=== PATIENT | male | born 2000 | race Caucasian/White ===

== ENCOUNTER → 2022-06-24 14:29 | Outpatient (CLI) | payer OTHER, SELFPAY ==
--- NOTE | ~2022-06-24 | XR_ITS ---
XR wrist RT 2V DATE: 06/24/2022 14:46 INDICATION: Localized swelling, mass, lot TECHNIQUE: AP and lateral views COMPARISON: None FINDINGS: There is prominent soft tissue swelling at the dorsum of the wrist. No underlying abnormal calcification or subcutaneous emphysema bony abnormality. No fracture or dislocation, periosteal reaction or bone destruction, erosive change or chondrocalcino sis. IMPRESSION: Prominent dorsal soft tissue swelling of the wrist Reviewed, dictated and finalized at location L. [employer]
== END ==
PROVIDERS: PCP Nurse Practitioner Family; Visit Provider Nurse Practitioner Family
DX: R22.31 Localized swelling, mass and lump, right upper limb (principal)
CPT/HCPCS: 73100

== ENCOUNTER 2023-06-02 11:58 | Emergency (ER) | payer OTHER, SELFPAY ==
[2023-06-02 12:22] VITALS: BP 112/69; PULSE 72; RESP 18; TEMP 36.9; O2SAT 100
--- NOTE | 2023-06-02 12:38 | ED.URI ---
HPI - URI/Sore Throat General Chief Complaint: Upper Respiratory Infection Stated Complaint: throat sore Time Seen by Provider: 06/02/23 12:32 Source: patient and RN notes reviewed Mode of arrival: ambulatory Limitations: no limitations History of Present Illness HPI Narrative: patient presents today complaining of a left-sided sore throat x2 days. Denies any additional symptoms to include fever, cough, congestion, rhinorrhea, ear pain. Currently rates his pain 3/10, which increases with swallowing. He has tried no [id number] treatment prior to arrival. Related Data Home Medications Medication Instructions Recorded Confirmed No Home Medications 06/24/22 06/02/23 Allergies Allergy/AdvReac Type Severity Reaction Status Date / Time No Known Allergies Allergy Unverified 06/24/22 14:08 Review of Systems Review of Systems: CONSTITUTIONAL: Denies body aches, fever, chills, or sweats. EYES: Denies visual changes, redness, or discharge. ENT: Denies rhinorrhea, congestion, or otalgia.+ Sore throat CARDIOVASCULAR: Denies chest pain, palpitations, or edema. RESPIRATORY: Denies cough or dyspnea. GASTROINTESTINAL: Denies abdominal pain, nausea, vomiting, or diarrhea. GENITOURINARY: Denies dysuria or hematuria. SKIN: Denies rash, itching, or wounds. MUSCULOSKELETAL: Denies back pain, joint pain, or myalgia. NEUROLOGIC: Denies headache, numbness, tingling, or weakness. PSYCH: Denies depression or anxiety. [facility] Past Medical History Medical History Encounter to establish care Lump of right wrist Tobacco abuse Social History Social History Smoking packs per day: 0.5 Smoking cigarettes per day: 10.0 Smoking status: Current every day smoker Alcohol intake: current Alcohol use details: Rarely Substance use: never Substance use type: does not use Lack of Transportation: No Lack of Food: Never True Current Housing: I Have Housing Concerned About Future Housing: No Difficulty Paying Gas/Electric Bills: No Difficulty Paying for Meds: No Currently Unemployed: No Education: Trade/Vocational Certificate Difficulty w/ Childcare or Family Care: No Comments At time of signature, I have reviewed and agree with nursing past medical, surgical, social and family history unless otherwise noted. Please see nursing chart for further information. There is no relevant family history pertinent to the presenting complaint Exam Narrative: GENERAL: Well-appearing, well-nourished, and in no acute distress. HEAD: Normocephalic, atraumatic. EYES: EOMI. No redness or drainage. Conjunctivae normal. ENT: Mucous membranes pink and moist. Nares clear. No rhinorrhea. TMs normal bilaterally. left tonsil 3+, erythematous, with white exudate. Right tonsil 2+ with white exudate. Uvula midline. NECK: Normal AROM. Supple. Bilateral anterior cervical chain lymphadenopathy. CHEST: No respiratory distress. Clear to auscultation. HEART: Regular rate and rhythm. No murmur appreciated. EXTREMITIES: Normal range of motion. No edema. SKIN: Warm, dry, no rash. Capillary refill normal. Normal skin turgor. NEURO: No focal deficits. Alert and oriented x3. Gait steady. PSYCH: Normal affect. No signs of depression or anxiety. Course Course Level of Care: Express Care Visit Vital Signs Vital signs: Vital Signs Temperature 98.5 F 06/02/23 12:22 Pulse Rate 72 06/02/23 12:22 Respiratory Rate 18 06/02/23 12:22 Blood Pressure 112/69 06/02/23 12:22 Pulse Oximetry 100 06/02/23 12:22 Oxygen Delivery Room Air 06/02/23 12:22 Temperature 98.5 F 06/02/23 12:22 Pulse Rate 72 06/02/23 12:22 Respiratory Rate 18 06/02/23 12:22 Blood Pressure 112/69 06/02/23 12:22 Pulse Oximetry 100 06/02/23 12:22 Oxygen Delivery Room Air 06/02/23 12:22 R
== END 2023-06-02 13:05 | disposition home or self-care (01) ==
PROVIDERS: Emergency Provider Nurse Practitioner; PCP Nurse Practitioner Family
DX: J03.90 Acute tonsillitis, unspecified (principal); F17.210 Nicotine dependence, cigarettes, uncomplicated
CPT/HCPCS: 87081; 87880; 99213; G0463

== ENCOUNTER 2024-06-25 16:30 | Emergency (ER) | payer OTHER, SELFPAY ==
[2024-06-25 16:39] VITALS: BP 124/83; PULSE 96; RESP 16; TEMP 37.7; O2SAT 99
--- NOTE | 2024-06-25 16:47 | ED.URI ---
HPI - URI/Sore Throat General Chief Complaint: Upper Respiratory Infection Stated Complaint: Sore Throat Time Seen by Provider: 06/25/24 16:47 Source: patient, RN notes reviewed and old records reviewed Mode of arrival: ambulatory Limitations: no limitations History of Present Illness HPI Narrative: Patient presents with complaints of sore throat for 2-3 days. He reports that he has been taking [id number] medication with poor relief. He states that left side hurts much worse than right. He denies any fever, chills, sweats. He reports that he is able to swallow, but this increases his pain. He is able to manage own secretions, no drooling or stridor noted. No hot potato voice. He is not in any obvious distress Related Data Allergies Allergy/AdvReac Type Severity Reaction Status Date / Time No Known Allergies Allergy Verified 06/25/24 16:33 Review of Systems Review of Systems: All systems reviewed & are unremarkable except as noted in HPI and below Constitutional: Constitutional: Reports no additional constitutional complaints ENT: Reports system reviewed and no additional complaints, except as documented and Reports sore throat Cardiovascular: Cardiovascular: Reports no additional cardiovascular complaints Respiratory: Respiratory: Reports no additional respiratory complaints Gastrointestinal: Gastrointestinal: Reports no additional gastrointestinal complaints [facility] Past Medical History Medical History Encounter to establish care Lump of right wrist Tobacco abuse Social History Social History Smoking packs per day: 0.5 Smoking cigarettes per day: 10.0 Smoking status: Current every day smoker Alcohol intake: current Alcohol use details: Rarely Substance use: never Substance use type: does not use Lack of Transportation: No Lack of Food: Never True Current Housing: I Have Housing Concerned About Future Housing: No Difficulty Paying Gas/Electric Bills: No Difficulty Paying for Meds: No Currently Unemployed: No Education: Trade/Vocational Certificate Difficulty w/ Childcare or Family Care: No Comments At the time of my signature, I reviewed and agree with the nursing past medical, surgical, social, and family history. There is no relevant family history pertinent to the patient complaint. Exam Const: General: cooperative, no acute distress, alert and awake Orientation/consciousness: oriented to person, oriented to place and oriented to time HENMT: Head: normal to inspection Ears: TM's normal bilaterally Mouth: Yes moist mucous membranes Throat: abnormal tonsil bilateral erythema, exudates (left, possible tonsil stones), hypertrophy (Left greater than right) and other Resp: Effort & Inspection: normal respiratory effort and able to speak in complete sentences Auscultation: clear to auscultation bilaterally, no crackles, no rales, no rhonchi and no wheezes Cardio: Palpation: normal PMI Rate: regular rate Rhythm: regular rhythm Heart sounds: S1 normal heart sound present and S2 normal heart sound present Neuro: General: oriented to person, oriented to place and oriented to time Cranial nerves: Yes CN's II-XII intact bilaterally Psych: Appearance: grossly normal Thought process: Normal thought process present Insight: Good insight present (Psych) Judgement: Good judgement present (Psych) Course Course Level of Care: Express Care Visit Vital Signs Vital signs: Vital Signs Temperature 99.9 F H 06/25/24 16:39 Pulse Rate 96 06/25/24 16:39 Respiratory Rate 16 06/25/24 16:39 Blood Pressure 124/83 06/25/24 16:39 Pulse Oximetry 99 06/25/24 16:39 Oxygen Delivery Room Air 06/25/24 16:39 Temperature 99.9 F H 06/25/24 16:39 Pulse Rate 96 06/25/24 16:39 Respiratory Rate 16 06/25/24 16:39 Blood Pressure 124/83 06/25/24 16:39 Pulse Oximetry 99 06/25/24 16:39 Oxygen Delivery Room Air 06/25/24 16:39 Reviewed MDM - URI/Sore Throat MDM Narrative Medical decision making narrative: Negative rapid strep, culture pending. Tonsils abnormal on exam, particularly left tonsil. White patches posteriorly, unable to discern whether this is exudate or multiple tonsil stones. Patient advised to do warm salt water rinses. Start treatment with amoxicillin. Discharge instructions reviewed with patient, as well as provided in writing per nursing staff. The instructions also include specific and strict return/GO TO THE ER as well as f/u information. All questions have been answered, and the patient deny any further questions with discharge and discharge plan. Some parts of this dictation were generated by voice recognition software and may contain typographical and/or grammatical inaccuracies. Differential Diagnosis Differential diagnosis: Likely upper respiratory infection, viral infection and pharyngitis Medical Records Attestation: I reviewed the patient's medical records. Lab Data Attestation: I reviewed the patient's lab results. Discharge Plan Discharge Clinical Impression: Acute tonsillitis Qualifiers: Pharyngitis/tonsillitis etiology: unspecified etiology Qualified Code(s): J03.90 - Acute tonsillitis, unspecified Patient Disposition: Home, Self-Care Condition: Stable Instructions: Antibiotic Form, Tonsillitis (ED) Additional Instructions: Do warm salt water gargle several times per day. Take medications as prescribed. Follow with primary care provider. Emergency department for new or worse symptoms Patient Language: Bahamian Prescriptions: New amoxicillin 875 mg tablet 875 mg PO Q12H Qty: 20 0RF Follow-up/Referrals: Gabby Mason NP [Primary Care Provider] - 2 Weeks Stand Alone Forms: Work/School Release IP Time of Disposition: 17:07
[2024-06-25 16:54] LABS: EDSTREPNEGPOS1 Negative (Negative)
== END 2024-06-25 17:15 | disposition home or self-care (01) ==
PROVIDERS: Emergency Provider Nurse Practitioner Family; PCP Nurse Practitioner Family
DX: J03.90 Acute tonsillitis, unspecified (principal); F17.210 Nicotine dependence, cigarettes, uncomplicated
CPT/HCPCS: 87081; 87880; 99213; G0463